=== PATIENT | female | born 1940 | race Caucasian/White ===

== ENCOUNTER 2016-11-12 08:28 | Day surgery (SDC) | payer OTHER ==
[2016-11-04 15:58] VITALS: BMI 21.4
[2016-11-12] MEDS: TROPICAMIDE 1% OPHTH SOLN 15 ML BOTTLE ONE ×3 (09:00→09:10)
[2016-11-12] MEDS: CYCLOPENTOLATE 2% OPHTH SOLN 2 ML BOTTLE ONE ×3 (09:00→09:10)
[2016-11-12] MEDS: PHENYLEPHRINE 2.5% OPHTH SOLN 15 ML BOTTLE ONE ×3 (09:00→09:10)
[2016-11-12] MEDS: CIPROFLOXACIN 0.3% EYE DROPS 5 ML BOTTLE ONE ×3 (09:00→09:10)
[2016-11-12] MEDS ORDERED: MIDAZOLAM HCL 2 MG/2 ML SINGLE DOSE VIAL ONE (10:08)
[2016-11-12 10:11] VITALS: BP 121/76; PULSE 60; TEMP 98.3
--- NOTE | 2016-11-12 12:40 | OP ---
DATE OF OPERATION: 11/12/2016 OPERATIVE PROCEDURE: Lens Phacoemulsification with Posterior Chamber Intraocular Lens Placement Left Eye PREOPERATIVE DIAGNOSIS: Visually Significant Cataract of Left Eye POSTOPERATIVE DIAGNOSIS: Visually Significant Cataract of Left Eye SURGEON: Kai Leija M.D. ANESTHESIA: MAC PROCEDURE: The patient was brought to the operating room and placed under monitored anesthesia care by Anesthesia. A drop of Tetracaine was then placed over the left eye. The patient was then prepped and draped in the usual sterile manner. A speculum was then placed over the left eye. The eye was then well irrigated with copious amounts of BSS (balanced salt solution). The operating microscope was then moved into position. A paracentesis was performed using a 15 degree blade. At this point 0.5 mL of 1% preservative-free lidocaine was injected into the anterior chamber. Amvisc plus was then injected into the anterior chamber. A clear corneal incision was then formed using a 2.2 mm keratome. A capsulorrhexis was then performed in a continuous circular fashion beginning with a cystotome, completed with an Utratas forceps. Hydrodissection was then performed using BSS on a cannula. The phaco probe was then introduced through the corneal wound and the cataract was removed using the phaco chop technique. Approximately 3 seconds of absolute phaco time was used. The remaining cortex was then removed using irrigation and aspiration with an I/A probe. The capsule was then filled with regular Amvisc and the capsule was noted to be intact. A previously selected foldable posterior chamber intraocular lens was then injected into the capsule through the corneal wound using a lens injector. It was then dialed into position using a Sinskey hook. The Amvisc was then removed using irrigation and aspiration. Miostat was then injected through the paracentesis to constrict the pupil. The paracentesis and corneal wound were then hydrated and noted to be water tight. A drop of Maxitrol was then placed over the eye. The speculum was removed and clear shield was taped over the eye. The patient tolerated the procedure well and there were no surgical complications. The patient was asked to follow up in my office the next day. KAI LEIJA M.D. SHELBY/[id number]
== END 2016-11-12 10:57 | disposition home or self-care (01) ==
LOC: FASU 08:28
PROVIDERS: ATTEND Ophthalmology
PROC: 08RK3JZ Replacement of Left Lens with Synthetic Substitute, Percutaneous Approach (ICD-10-PCS; principal; 2016-11-12 10:00)
DX: H26.8 Other specified cataract (principal)

== ENCOUNTER 2018-08-12 19:58 | Emergency (ER) | payer OTHER ==
--- NOTE | 2018-08-12 20:05 | PDOC ---
History of Present Illness - General History Source: Patient, Family (Son) Exam Limitations: No Limitations <Brenden Burgess - Last Filed: 08/12/18 20:51> <Bety Chong - Last Filed: 08/13/18 01:06> - General Chief Complaint: Chest Pain Stated Complaint: CHEST PAIN Time Seen by Provider: 08/12/18 20:02 - History of Present Illness Initial Comments: 08/12/18 20:29 The patient is a 77 year old female, with a significant past medical history of rheumatic fever (as a child), early dementia, who presents to the ED complaining of chest pain for the past 30 minutes. She describes her chest pain as a fast beat with pain, mild in severity. She denies any modifying factors. She does note pain on her left arm, mid back pain and a "shaky" sensation that also developed today. She reports that she recently had a runny hose and suffers from vertigo for which she takes Meclizine. The patient denies shortness of breath, headache, fever, chills, nausea, vomiting, diarrhea or constipation. Denies dysuria, frequency, urgency and hematuria. Allergies: None Past surgical history: None reported Social History: No alcohol, tobacco or drug use reported (Brenden Burgess) Past History <KamrantiffanieBrenden - Last Filed: 08/12/18 20:51> - Past Medical History Anemia: No Asthma: No Cancer: No Cardiac Disorders: No (RHEUMATIC FEVER A CHILD) CVA: No COPD: No CHF: No Dementia: Yes (MILD) Diabetes: No GI Disorders: No Disorders: No HTN: No Hypercholesterolemia: No Liver Disease: No Seizures: No Thyroid Disease: No - Surgical History Abdominal Surgery: No Appendectomy: No Cardiac Surgery: No Cholecystectomy: No Lung Surgery: No Neurologic Surgery: No Orthopedic Surgery: No - Suicide/Smoking/Psychosocial Hx Smoking History: Never smoked Have you smoked in the past 12 months: No Hx Alcohol Use: No Drug/Substance Use Hx: No Substance Use Type: None Hx Substance Use Treatment: No <Bety Chong - Last Filed: 08/13/18 01:06> - Past Medical History Allergies/Adverse Reactions: Allergies Allergy/AdvReac Type Severity Reaction Status Date / Time No Known Allergies Allergy Verified 11/29/17 19:37 Home Medications: Ambulatory Orders Aspirin [ASA -] 81 mg PO DAILY 09/02/16 Memantine HCl [Namenda -] 5 mg PO DAILY 09/02/16 Cardiac Specific PMH - Complaint Specific PMHX Pacemaker: No <Bety Chong - Last Filed: 08/13/18 01:06> Review of Systems - Review of Systems Able to Perform ROS?: Yes <Brenden Burgess - Last Filed: 08/12/18 20:51> <Bety Chong - Last Filed: 08/13/18 01:06> - Review of Systems Comments:: 08/12/18 20:28 GENERAL/CONSTITUTIONAL: No fever or chills. No weakness. HEAD, EYES, EARS, NOSE AND THROAT: No change in vision. No ear pain or discharge. No sore throat. GASTROINTESTINAL: No nausea, vomiting, diarrhea or constipation. GENITOURINARY: No dysuria, frequency, or change in urination. CARDIOVASCULAR: (+) Chest pain. No shortness of breath. RESPIRATORY: No cough, wheezing, or hemoptysis. MUSCULOSKELETAL: (+) Mid back pain. No joint or muscle swelling or pain. No neck pain. SKIN: No rash NEUROLOGIC: (+) Dizziness. No headache, loss of consciousness, or change in strength/sensation. ENDOCRINE: No increased thirst. No abnormal weight change. HEMATOLOGIC/LYMPHATIC: No anemia, easy bleeding, or history of blood clots. ALLERGIC/IMMUNOLOGIC: No hives or skin allergy. (Brenden Burgess) *Physical Exam <Brenden Burgess - Last Filed: 08/12/18 20:51> <Bety Chong - Last Filed: 08/13/18 01:06> - Vital Signs Last Vital Signs Temp Pulse Resp BP Pulse Ox 98.1 F 83 16 150/80 99 08/12/18 20:06 08/12/18 20:06 08/12/18 20:06 08/12/18 20:06 08/12/18 20:06 - Physical Exam Comments: 08/12/18 20:28 Constitutional: Awake, alert, oriented. No acute distress. Head: Normocephalic. Atraumatic Eyes: PERRL. EOMI. Conjunctivae are not pale. ENT: Mucous membranes are moist and intact. Posterior pharynx without exudates or erythema. Uvula midline. Neck: Supple. Full ROM. No lymphadenopathy. Cardiovascular: (+) 2/6 systolic ejection murmur. Regular rate. Distal pulses are 2+ and symmetric. Pulmonary/Chest: No evidence of respiratory distress. Clear to auscultation bilaterally No wheezing, rales or rhonchi. Chest wall: (+) Mildly tender palpation in the left periscapular area, without crepitus, stepoffs. Abdominal: Soft and non-distended. There is no tenderness. No rebound, guarding or rigidity. No organomegaly. No palpable masses. Good bowel sounds. Back: No CVA tenderness. Musculoskeletal: No edema. No cyanosis. No clubbing. Full range of motion in all extremities. Nocalf tenderness. Radial/pedal pulses are intact and 2+ bilaterally Skin: Skin is warm and dry. No petechiae. No purpura. Neurological: (+) Mild resting tremor of upper extremities. Alert and oriented to person, place, and time. Cranial nerves II-XII are grossly intact. Normal speech. Strength is grossly symmetric. No sensory deficits. Psychiatric: Good eye contact. Normal interaction, affect and behavior. (Brenden Burgess) Heart Score/ECG Review - History History: Slightly suspicious - Electrocardiogram EKG: Normal - Age Age: >/= 65 - Risk Factors Based on the list above the patient has:: No risk factors known - Troponin Troponin: </= normal limit - Score Heart Score - Total: 2 <Bety Chong Filed: 08/13/18 01:06> - Procedure Monitoring Vital Signs: Procedure Monitoring Vital Signs Temperature 98.1 F 08/12/18 20:06 Pulse Rate 83 08/12/18 20:06 Respiratory Rate 16 08/12/18 20:06 Blood Pressure 150/80 08/12/18 20:06 O2 Sat by Pulse Oximetry (%) 99 08/12/18 20:06 ED Treatment Course - LABORATORY CBC & Chemistry Diagram: 08/12/18 21:00 08/12/18 21:00 <Bety Chong - Last Filed: 08/13/18 01:06> - ADDITIONAL ORDERS Additional order review: Laboratory Results 08/12/18 08/12/18 08/12/18 21:00 21:00 21:00 PT with INR 10.7 INR 0.95 L Sodium 136 Potassium 3.5 Chloride 104 Carbon Dioxide 25 Anion Gap 7 L BUN 15 Creatinine 0.8 Creat Clearance w eGFR > 60 Random Glucose 161 H D Calcium 8.4 Total Bilirubin 0.8 AST 23 ALT 15 Alkaline Phosphatase 103 H Creatine Kinase 61 Troponin I < 0.03 Total Protein 7.2 Albumin 3.6 08/12/18 21:00 RBC 4.47 MCV 93.1 MCHC 33.1 RDW 12.7 MPV 7.8 Neutrophils % 64.9 Lymphocytes % 25.7 Monocytes % 5.1 Eosinophils % 3.5 Basophils % 0.8 - RADIOLOGY Radiology Studies Ordered: Category Date Time Status CHEST X-RAY PORTABLE* [RAD] Stat Radiology 08/12/18 21:02 Taken Medical Decision Making <Brenden Burgess - Last Filed: 08/12/18 20:51> <Bety Chong - Last Filed: 08/13/18 01:06> - Medical Decision Making Documentation has been prepared under my direction and personally reviewed by me in its entirety. I attest that this documented accurately reflects all work, treatment, procedures and medical decision making performed by me. As noted above, this 77-year-old woman is brought into the emergency room by her son with history of chest pain and upper back pain earlier this evening. Patient was not engaging in any physical activity with onset of this pain. Patient (who has known history of dementia) describes the pain as a rapid heartbeat. Patient is unclear how long discomfort lasted but is without pain on examination soon after presenting to the ER. Exam as noted. This 77-year-old woman presents with history of anterior chest pain and upper back pain; she is asymptomatic on presentation. Exam as noted is normal except for mild left periscapular tenderness and faint heart murmur. 12-lead electrocardiogram is performed and interpreted by me: Normal sinus rhythm at [address] or T-wave abnormalities. There is left axis deviation and poor R-wave progression. No evidence of cardiac arrhythmia. CBC and chemistry profile sent. Troponin is less than 0.03. There are no other significant abnormalities. Portable chest x-ray shows normal cardiac silhouette; major vessels are also normal in appearance. Lung cali are without infiltrates, interstitial fluid or pneumothorax. Patient will be discharged in the company of her son with plan to follow-up with her PMD, Dr. Didier Cabrales tomorrow. If she has any recurrence of her atypical chest pain, she should return to the emergency room where this workup will be started. (Bety Chong) *DC/Admit/Observation/Transfer <Brenden Burgess - Last Filed: 08/12/18 20:51> <Bety Chong - Last Filed: 08/13/18 01:06> Diagnosis at time of Disposition: Atypical chest pain - Discharge Dispostion Disposition: HOME Condition at time of disposition: Stable - Referrals Referrals: Alli Cabrales MD [Primary Care Provider] - Call tomorrow - Patient Instructions Printed Discharge Instructions: DI for Atypical Chest Pain Additional Instructions: You can take Tylenol/aspirin/ibuprofen as needed for pain Be sure to take aspirin/ibuprofen with food Continue other medications as prescribed Call Dr. Cabrales in a.m. to arrange follow-up within the next 5 days as discussed Return to ER immediately if you have any further chest pain/shortness breath/ palpitations - Post Discharge Activity - Attestations Scribe Attestion: 08/12/18 20:28 Documentation prepared by Brenden Burgess, acting as medical orderly for Bety Chong MD (Brenden Burgess)
[2018-08-12 20:11] VITALS: BP 150/80; PULSE 83; TEMP 98.1; BMI 21.0
[2018-08-12 21:16] LABS: BASO % 0.8 % (0-2.0); EOS % 3.5 % (0-4.5); HEMATOCRIT 41.6 % (32.4-45.2); HEMOGLOBIN 13.7 GM/dl (10.7-15.3); LYMPH % 25.7 % (8-40); MCH 30.8 pg (25.7-33.7); MCHC 33.1 g/dl (32.0-36.0); MEAN CELL VOLUME 93.1 fl (80-96); MEAN PLT VOLUME 7.8 fl (7.5-11.1); MONO % 5.1 % (3.8-10.2); NEUT % 64.9 % (42.8-82.8); PLATELET COUNT 329 K/MM3 (134-434); RBC 4.47 M/mm3 (3.60-5.2); RDW 12.7 % (11.6-15.6); WHITE BLOOD COUNT 7.8 K/mm3 (4.0-10.8)
[2018-08-12 21:18] LABS: INR 0.95 (0.82-1.09); PROTHROMBIN TIME (PATIENT) 10.7 SEC (10.2-13.0)
[2018-08-12 21:25] LABS: ALBUMIN 3.6 g/dl (3.5-5.0); ALK PHOS 103 U/L (32-92); ANION GAP 7 MMOL/L (8-16); BILIRUBIN,TOTAL 0.8 mg/dl (0.2-1.0); BLOOD UREA NITROGEN 15 mg/dl (7-18); CALCIUM 8.4 mg/dl (8.4-10.2); CHLORIDE 104 mmol/L (98-107); CO2 25 mmol/L (22-28); CREATININE 0.8 mg/dl (0.6-1.3); GLUCOSE,RANDOM 161 mg/dl (74-106); POTASSIUM 3.5 mmol/L (3.5-5.1); SGOT/AST 23 U/L (10-42); SGPT/ALT 15 U/L (10-40); SODIUM 136 mmol/L (136-145); TOT PROT 7.2 g/dl (6.4-8.3)
--- NOTE | 2018-08-13 10:19 | EKG ---
Test Reason : Blood Pressure : / mmHG Vent. Rate : 073 BPM Atrial Rate : 073 BPM P-R Int : 176 ms QRS Dur : 086 ms QT Int : 414 ms P-R-T Axes : 043 -50 029 degrees QTc Int : 456 ms NORMAL SINUS RHYTHM LEFT AXIS DEVIATION LOW VOLTAGE QRS INFERIOR INFARCT , AGE UNDETERMINED CANNOT RULE OUT ANTERIOR INFARCT , AGE UNDETERMINED ABNORMAL ECG NO PREVIOUS ECGS AVAILABLE Confirmed by LUIS NGUYEN MD ([id number]) on 08/13/2018 10:18:33 AM Referred By: DR COSTA Confirmed By:LUIS NGUYEN MD
== END 2018-08-12 22:10 | disposition home or self-care (01) ==
LOC: FER 19:58
DX: R07.89 Other chest pain (principal)
CPT/HCPCS: 36415; 71045-TC-FY; 80053; 82550; 84484; 85025; 85610; 93005; 99281-25

== ENCOUNTER 2018-11-22 07:54 | Emergency (ER) | payer OTHER ==
[2018-11-22 08:00] VITALS: BP 151/89; PULSE 84; TEMP 98; BMI 21.4
[2018-11-22] MEDS ORDERED: DIPHTH,PERTUSS(ACELL),TET 0.5 ML DISP.SYRIN IM ONE ×2 (08:10→08:12)
--- NOTE | 2018-11-22 08:11 | PDOC ---
History of Present Illness - General Chief Complaint: Injury Stated Complaint: Fall Time Seen by Provider: 11/22/18 08:02 - History of Present Illness Initial Comments: 11/22/18 08:16 75 years old past medical history significant for vertigo on meclizine dementia resents to the ED with a mechanical fall out of bed. Patient's son states patient rolled out of bed and hit the back of her head was no loss of consciousness. Patient with no complaints at this time No new symptoms recently no new or different headaches chest pain shortness of breath no runny nose cough sore throat nausea vomiting diarrhea or urinary symptoms. Patient has fallen out of bed before Symptoms appear mild persistent constant Past History - Past Medical History Allergies/Adverse Reactions: Allergies Allergy/AdvReac Type Severity Reaction Status Date / Time No Known Allergies Allergy Verified 11/22/18 07:59 Home Medications: Ambulatory Orders Aspirin [ASA -] 81 mg PO DAILY 09/02/16 Memantine HCl [Namenda -] 5 mg PO DAILY 09/02/16 Meclizine HCl 12.5 mg PO ASDIR 11/22/18 Anemia: No Asthma: No Cancer: No Cardiac Disorders: No (RHEUMATIC FEVER A CHILD) CVA: No COPD: No CHF: No Dementia: Yes (MILD) Diabetes: No GI Disorders: No Disorders: No HTN: No Hypercholesterolemia: No Liver Disease: No Seizures: No Thyroid Disease: No - Surgical History Abdominal Surgery: No Appendectomy: No Cardiac Surgery: No Cholecystectomy: No Lung Surgery: No Neurologic Surgery: No Orthopedic Surgery: No - Suicide/Smoking/Psychosocial Hx Smoking History: Never smoked Have you smoked in the past 12 months: No Hx Alcohol Use: No Drug/Substance Use Hx: No Substance Use Type: None Hx Substance Use Treatment: No Review of Systems - Review of Systems Comments:: 11/22/18 08:16 ROS: A complete review of 10 out of 10 review of systems is taken and is negative apart from what is previously mentioned below and in the HPI. *Physical Exam - Vital Signs Last Vital Signs Temp Pulse Resp BP Pulse Ox 98 F 84 18 151/89 100 11/22/18 07:59 11/22/18 07:59 11/22/18 07:59 11/22/18 07:59 11/22/18 07:59 - Physical Exam Comments: 11/22/18 08:19 Vitals: Triage Vital signs reviewed General Appearance: no acute distress, well nourished well developed, Head: Hematoma and small abrasion to occiput Eyes: Pupils equal reactive round, extraocular movement intact Ears: No blood Nose: Nares patent bilaterally;no nasal congestion Neck: Supple;No Nucal rigidity Chest Wall: Nontender Cardiac: Regular rate and rhythym, no murmurs, no rubs, no gallops, Lungs: Clear to auscultation bilateral, good air movement bilaterally, Abdomen: Soft, non distended, normal bowel sounds, non tender to palpation Extremities: Full range of motion to all extremities, no cyanosis, clubbing, or edema Skin: Warm and dry, no rashes or lesions, no rash, no petechiae Neuro: Cranial Nerves 2-12 grossly intact, Strength intact to all extremities, Sensation intact to all extremities Psych: normal mood, normal affect Moderate Sedation - Procedure Monitoring Vital Signs: Procedure Monitoring Vital Signs Temperature 98 F 11/22/18 07:59 Pulse Rate 84 11/22/18 07:59 Respiratory Rate 18 11/22/18 07:59 Blood Pressure 151/89 11/22/18 07:59 O2 Sat by Pulse Oximetry (%) 100 11/22/18 07:59 ED Treatment Course - RADIOLOGY Radiology Studies Ordered: Category Date Time Status CERVICAL SPINE CT W/O CONTR [CT] Stat CT Scan 11/22/18 08:[address] WITHOUT CONTRAST [CT] Stat CT Scan 11/22/18 08:10 Ordered Medical Decision Making - Medical Decision Making 11/22/18 09:42 No fracture noted or injury noted on CT History examination consistent with minor head injury Findings, the need for follow-up and strict return instructions discussed with patient. 11/22/18 18:56 *DC/Admit/Observation/Transfer Diagnosis at time of Disposition: Head injury Qualifiers: Encounter type: initial encounter Qualified Code(s): S09.90XA - Unspecified injury of head, initial encounter - Discharge Dispostion Condition at time of disposition: Stable Decision to Admit order: No - Referrals Referrals: Alli Cabrales MD [Primary Care Provider] - - Patient Instructions Printed Discharge Instructions: DI for Closed Head Injury Additional Instructions: Return to the ED for any severe headache change in behavior weakness numbness or vomiting. Tonight wake the patient up every 3 hours of sleep to ensure she is acting normally. Follow-up with her primary care provider within one to 2 days. Return to ED for any concerns. For the small abrasion to the back of her head please apply bacitracin twice a day. - Post Discharge Activity
== END 2018-11-22 09:57 | disposition home or self-care (01) ==
LOC: FER 07:54 → SUPCPDRO 07:54 → FER 09:57
PROC: 3E0234Z Introduction of Serum, Toxoid and Vaccine into Muscle, Percutaneous Approach (ICD-10-PCS; principal; 2018-11-22)
DX: S09.90XA Unspecified injury of head, initial encounter (principal); W06.XXXA Fall from bed, initial encounter; Y93.89 Activity, other specified; Y92.89 Other specified places as the place of occurrence of the external cause; F03.90 Unspecified dementia, unspecified severity, without behavioral disturbance, psychotic disturbance, mood disturbance, and anxiety
CPT/HCPCS: 70450-TC; 72125-TC; 90715; 99282-25

== ENCOUNTER 2019-01-02 23:42 | Emergency (ER) | payer OTHER ==
[2019-01-02] MEDS ORDERED: ACETAMINOPHEN 325 MG TABLET (FP) PO ONE (23:55)
[2019-01-02 23:59] VITALS: BP 139/86; PULSE 71; TEMP 98.3; BMI 20.1
[2019-01-03] MEDS ORDERED: ACETAMINOPHEN 325 MG TABLET (FP) ONE (00:01)
--- NOTE | 2019-01-03 00:08 | PDOC ---
History of Present Illness - General Chief Complaint: Injury Stated Complaint: INJURY TO LEFT KNEE Time Seen by Provider: 01/02/19 23:47 History Source: Patient, Family Exam Limitations: No Limitations - History of Present Illness Initial Comments: 01/02/19 23:59 78-year-old female patient with past medical history of early stage dementia presents with fall to left knee. The fall was witnessed by the patient's son. The patient was ambulatory without assistance when she had mechanical fall. Was called by the son but the left knee hit the ground. Initially, the patient was ambulatory after the injury. However, throughout the day, the patient's left knee is continues swollen and was more tender. Patient taking Motrin and EMS was called. Patient typically walks with a cane. Patient denies any numbness or weakness. Past History - Past Medical History Allergies/Adverse Reactions: Allergies Allergy/AdvReac Type Severity Reaction Status Date / Time No Known Allergies Allergy Verified 01/02/19 23:45 Home Medications: Ambulatory Orders Aspirin [ASA -] 81 mg PO DAILY 09/02/16 Memantine HCl [Namenda -] 5 mg PO DAILY 09/02/16 Meclizine HCl 12.5 mg PO ASDIR 11/22/18 Anemia: No Asthma: No Cancer: No Cardiac Disorders: No (RHEUMATIC FEVER A CHILD) CVA: No COPD: No CHF: No Dementia: Yes (MILD) Diabetes: No GI Disorders: No Disorders: No HTN: No Hypercholesterolemia: No Liver Disease: No Seizures: No Thyroid Disease: No - Surgical History Abdominal Surgery: No Appendectomy: No Cardiac Surgery: No Cholecystectomy: No Lung Surgery: No Neurologic Surgery: No Orthopedic Surgery: No - Suicide/Smoking/Psychosocial Hx Smoking History: Never smoked Have you smoked in the past 12 months: No Information on smoking cessation initiated: No Hx Alcohol Use: No Drug/Substance Use Hx: No Substance Use Type: None Hx Substance Use Treatment: No Review of Systems - Review of Systems Able to Perform ROS?: Yes Comments:: 01/03/19 00:08 GENERAL/CONSTITUTIONAL: [No fever or chills. No weakness. No weight change.] HEAD, EYES, EARS, NOSE AND THROAT: [No change in vision. No ear pain or discharge. No sore throat.] CARDIOVASCULAR: [No chest pain or shortness of breath.] RESPIRATORY: [No cough, wheezing, or hemoptysis.] GASTROINTESTINAL: [No nausea, vomiting, diarrhea or constipation. No rectal bleeding.] GENITOURINARY: [No dysuria, frequency, or change in urination.] MUSCULOSKELETAL: [No joint pain. No neck or back pain.] + left knee pain SKIN AND BREASTS: [No rash or easy bruising.] NEUROLOGIC: [No headache, vertigo, loss of consciousness, or loss of sensation.] PSYCHIATRIC: [No depression or anxiety.] ENDOCRINE: [No increased thirst. No abnormal weight change.] HEMATOLOGIC/LYMPHATIC: [No anemia, easy bleeding, or history of blood clots.] ALLERGIC/IMMUNOLOGIC: [No hives or skin allergy. No latex allergy.] *Physical Exam - Vital Signs Last Vital Signs Temp Pulse Resp BP Pulse Ox 98.3 F 71 18 139/86 97 01/02/19 23:47 01/02/19 23:47 01/02/19 23:47 01/02/19 23:47 01/02/19 23:47 - Physical Exam Comments: 01/03/19 00:09 GENERAL: Awake, alert, and oriented, in no acute distress HEAD: No signs of trauma EYES: EOMI, sclera anicteric, conjunctiva clear ENT: Auricles normal inspection, hearing grossly normal, nares patent, Moist mucosa NECK: Normal ROM, supple, LUNGS: Breath sounds equal, clear to auscultation bilaterally. No wheezes, and no crackles HEART: Regular rate and rhythm, normal S1 and S2, no murmurs, rubs or gallops ABDOMEN: Soft, nontender,. No guarding, no rebound. No masses PELVIS: stable and nontender EXTREMITIES: Normal range of motion, No clubbing or cyanosis. No cords, erythema. LLE: 2+ DP pulse. Sensation and strength intact throughout. Mild left knee effusion appreciated. negative varus/valgus. Negative anterior/posterior drawer test. Mildly TTP left anterior knee. Pt is ambulatory with assistance. NEUROLOGICAL: Cranial nerves II through XII grossly intact. Normal speech SKIN: Warm, Dry, normal turgor, no rashes or lesions noted. ED Treatment Course - RADIOLOGY Radiology Studies Ordered: Category Date Time Status KNEE 3 POS-LEFT [RAD] Stat Radiology 01/02/19 23:55 Ordered Medical Decision Making - Medical Decision Making 01/03/19 00:13 Vital Signs Temp Pulse Resp BP Pulse Ox 98.3 F 71 18 139/86 97 01/02/19 23:47 01/02/19 23:47 01/02/19 23:47 01/02/19 23:47 01/02/19 23:47 I suspect that the patient has a left knee contusion or strain. Will obtain a left knee xray to r/o fracture. However, pt is ambulatory. Tylenol PRN. If xray negative, d/c with follow up with son. 01/03/19 00:41 Xray reviewed by me, pending official radiology read. Mild effusion, no fractures. Will d/c patient home with pt's son. INEZ wrap applied to the knee. I discussed the physical exam findings, ancillary test results and final diagnoses with the patient. I answered all of the patient's questions. The patient was satisfied with the care received and felt comfortable with the discharge plan and treatment plan. The patient will call their primary care physician within 24 hours to arrange follow-up and will return to the Emergency Department with any new, persistant or worsening symptoms. *DC/Admit/Observation/Transfer Diagnosis at time of Disposition: Knee pain Qualifiers: Chronicity: acute Laterality: left Qualified Code(s): M25.562 - Pain in left knee - Discharge Dispostion Disposition: HOME Condition at time of disposition: Stable Decision to Admit order: No - Referrals Referrals: Alli Cabrales MD [Primary Care Provider] - - Patient Instructions Printed Discharge Instructions: DI for Knee Pain Additional Instructions: There does not appear to be a fracture on the xray. Use the INEZ wrap as needed for comfort. Elevate the leg to help with the swelling. Ice the knee 10 minutes several times a day. Take 650 mg tylenol every 4 hours as needed for pain. Follow up with your doctor. - Post Discharge Activity
== END 2019-01-03 00:55 | disposition home or self-care (01) ==
LOC: FER 23:42
DX: M25.562 Pain in left knee (principal); F03.90 Unspecified dementia, unspecified severity, without behavioral disturbance, psychotic disturbance, mood disturbance, and anxiety; I00 Rheumatic fever without heart involvement
CPT/HCPCS: 73562-TC-LT-FY; 99281-25

== ENCOUNTER 2019-01-04 10:56 | Inpatient (IN) | payer OTHER ==
--- NOTE | 2019-01-04 11:48 | PDOC ---
History of Present Illness - General Chief Complaint: Injury Stated Complaint: LEFT KNEE SWOLLEN Time Seen by Provider: 01/04/19 11:10 - History of Present Illness Initial Comments: 01/04/19 11:43 78yo F hx dementia, vertigo presents to the ED with progressive knee pain since fall on Thursday. Pt was seen here in the ED after the fall, XR was neg for acute fx and pt was DC. SInce then swelling around L knee worse, can not bear weight. Son states she normally ambulates with a cane, but now needs assistance to ambulate. He is concerned because she lives alone. Per her son, pt had a bed at [facility] but the bed was lost due to insurance issues. On ROS, pt also reporting 1 week of urinary frequency, no dysuria or hematuria. Denies fevers, chills, weakness/numbness, headache, CP, SOB, abd pain, LE edema. Pt takes nemenda, aspirin daily and meclizine PRN for vertigo. Past History - Past Medical History Allergies/Adverse Reactions: Allergies Allergy/AdvReac Type Severity Reaction Status Date / Time No Known Allergies Allergy Verified 01/04/19 11:03 Home Medications: Ambulatory Orders Aspirin [ASA -] 81 mg PO DAILY 09/02/16 Memantine HCl [Namenda -] 12.5 mg PO DAILY 09/02/16 Meclizine HCl 12.5 mg PO ASDIR 11/22/18 Anemia: No Asthma: No Cancer: No Cardiac Disorders: No (RHEUMATIC FEVER A CHILD) CVA: No COPD: No CHF: No Dementia: Yes (MILD) Diabetes: No GI Disorders: No Disorders: No HTN: No Hypercholesterolemia: No Liver Disease: No Seizures: No Thyroid Disease: No - Surgical History Abdominal Surgery: No Appendectomy: No Cardiac Surgery: No Cholecystectomy: No Lung Surgery: No Neurologic Surgery: No Orthopedic Surgery: No - Suicide/Smoking/Psychosocial Hx Smoking History: Never smoked Have you smoked in the past 12 months: No Hx Alcohol Use: No Drug/Substance Use Hx: No Substance Use Type: None Hx Substance Use Treatment: No Review of Systems - Review of Systems Comments:: 01/04/19 13:16 GENERAL/CONSTITUTIONAL: No fever or chills. No weakness. HEAD, EYES, EARS, NOSE AND THROAT: No change in vision. No ear pain or discharge. No sore throat. GASTROINTESTINAL: No nausea, vomiting, diarrhea or constipation. GENITOURINARY: + dysuria, frequency, change in urination. CARDIOVASCULAR: No chest pain or shortness of breath. RESPIRATORY: No cough, wheezing, or hemoptysis. MUSCULOSKELETAL: +Knee pain and swelling, no neck or back pain. SKIN: No rash NEUROLOGIC: No headache, vertigo, loss of consciousness, or change in strength/ sensation. ENDOCRINE: No increased thirst. No abnormal weight change. HEMATOLOGIC/LYMPHATIC: No anemia, easy bleeding, or history of blood clots. ALLERGIC/IMMUNOLOGIC: No hives or skin allergy. *Physical Exam - Vital Signs Last Vital Signs Temp Pulse Resp BP Pulse Ox 98.4 F 78 16 102/71 96 01/04/19 10:57 01/04/19 10:57 01/04/19 10:57 01/04/19 10:57 01/04/19 10:57 - Physical Exam Comments: 01/04/19 13:17 GENERAL: Awake, alert, in no acute distress HEAD: No signs of trauma EYES: EOMI, sclera anicteric, conjunctiva clear ENT: Nares patent, oropharynx clear without exudates. Moist mucosa NECK: Normal ROM, supple, no lymphadenopathy, JVD, or masses LUNGS: Breath sounds equal, clear to auscultation bilaterally. No wheezes, and no crackles HEART: Regular rate and rhythm, normal S1 and S2, no murmurs, rubs or gallops ABDOMEN: Soft, nontender, normoactive bowel sounds. No guarding, no rebound. No masses EXTREMITIES: L knee with edema consistent with suprapatellar effusion. No focal ttp. Pt unable to bear weight on LLE. LLE compartments soft. 2+ palpable DP and TP pulses. NEUROLOGICAL: Normal speech, cranial nerves intact, equal strength and sensation b/l. Requires assistance in order to ambulate SKIN: Warm, Dry, normal turgor, no rashes or lesions noted. Heart Score/ECG Review #1 01/04/19 13:23 Twelve-lead EKG was performed and reviewed by me. Normal sinus rhythm, rate 67. Left axis deviation. Left anterior fascicular block. No ST elevations. ED Treatment Course - LABORATORY CBC & Chemistry Diagram: 01/04/19 12:10 01/04/19 12:26 Medical Decision Making - Medical Decision Making 01/04/19 13:06 78yo F presents to the ED with progressive knee pain since fall 2 days ago, now unable to bear weight +edema to L knee and pt unable to bear weight, but NVI XR from 2 days ago reviewed, reveals old tibial plateau fx As pt unable to bear weight, I am concerned the tibial plateau fx may not be old As such, obtained CT scan for further evaluation which reveals that tibial plateau fx may be acute Case discussed with Dr. Schroeder who recommends NWB, knee immoblizer and he will come to evaluate pt Case discussed with MASS SPECTROSCOPIST Mona, pt admitted to Dr. Duque for further mgmt Pain well controlled with tramadol Case discussed in detail with admitting physician including history, physical exam and ancillary studies. Admitting physician has assumed care for the patient, will follow all pending diagnostics and will complete the evaluation and treatment. *DC/Admit/Observation/Transfer Diagnosis at time of Disposition: Tibial plateau fracture, left - Discharge Dispostion Condition at time of disposition: Stable - Referrals - Patient Instructions - Post Discharge Activity - Attestations Physician Attestion: 01/04/19 15:01 I, Dr. Favio Ordaz MD, attest that this document has been prepared under my direction and personally reviewed by me in its entirety. I further attest, that it accurately reflects all work, treatment, procedures and medical decision -making performed by me.
[2019-01-04 12:36] LABS: BASO % 0.6 % (0-2.0); EOS % 0.9 % (0-4.5); HEMATOCRIT 41.8 % (32.4-45.2); HEMOGLOBIN 13.9 GM/dl (10.7-15.3); LYMPH % 18.5 % (8-40); MCH 31.3 pg (25.7-33.7); MCHC 33.2 g/dl (32.0-36.0); MEAN CELL VOLUME 94.3 fl (80-96); MEAN PLT VOLUME 7.7 fl (7.5-11.1); PLATELET COUNT 329 K/MM3 (134-434); RBC 4.43 M/mm3 (3.60-5.2); RDW 12.9 % (11.6-15.6); WHITE BLOOD COUNT 8.4 K/mm3 (4.0-10.8)
--- NOTE | 2019-01-04 12:38 | EKG ---
Test Reason : Blood Pressure : / mmHG Vent. Rate : 067 BPM Atrial Rate : 067 BPM P-R Int : 172 ms QRS Dur : 096 ms QT Int : 428 ms P-R-T Axes : 048 -49 022 degrees QTc Int : 452 ms NORMAL SINUS RHYTHM LEFT ANTERIOR FASCICULAR BLOCK CANNOT RULE OUT INFERIOR INFARCT (CITED ON OR BEFORE 12-AUG-2018) ABNORMAL ECG Confirmed by MD ROXANN, ELIER ([id number]) on 01/04/2019 12:38:14 PM Referred By: PATIENCE LONG Confirmed By:ELIER HACKETT MD
[2019-01-04 12:45] LABS: ALBUMIN 3.9 g/dl (3.4-5.0); ALK PHOS 123 U/L (45-117); ANION GAP 9 MMOL/L (8-16); BILIRUBIN,TOTAL 1.2 mg/dl (0.2-1); BLOOD UREA NITROGEN 12 mg/dl (7-18); CALCIUM 8.8 mg/dl (8.5-10); CHLORIDE 103 mmol/L (98-107); CO2 25 mmol/L (21-32); CREATININE 0.7 mg/dl (0.55-1.3); GLUCOSE,RANDOM 99 mg/dl (74-106); POTASSIUM 3.8 mmol/L (3.5-5.1); SGOT/AST 22 U/L (15-37); SGPT/ALT 13 U/L (13-61); SODIUM 137 mmol/L (136-145); TOT PROT 7.3 g/dl (6.4-8.2)
[2019-01-04] MEDS ORDERED: NAPROXEN 250 MG TABLET (FP) PO ONE (13:08)
[2019-01-04] MEDS ORDERED: traMADol HCL 50 MG TABLET PO ONE (13:09)
[2019-01-04] MEDS ORDERED: traMADol HCL 50 MG TABLET ONE (13:11)
--- NOTE | 2019-01-04 16:42 | HP ---
CHIEF COMPLAINT: Left knee pain and swelling PCP: Dr. Didier Cabrales HISTORY OF PRESENT ILLNESS: 78 year-old female with a PMH significant for benign positional vertigo, frequent falls, and dementia. First presented to the ED on 01/02 for left knee pain and swelling following a mechanical fall. Xray was unrevealing for an acute process and the patient was treated and released. Over the past two days, the swelling become worse and patient could no longer weight bear. She was brought back to ED by son. On ROS, patient reports urinary frequency x 1 week, no dysuria or hematuria. Denies fever, sweats, chills. ER course was notable for: (1) CT LLE: fracture of the posteriolateral tibial plateau of uncertain chronicity, may be acute; large joint effusion (2) UA negative Recent Travel: No PAST MEDICAL HISTORY: Benign positional vertigo Right hip fracture Right shoulder fracture Frequent falls Dementia Rheumatic fever as child PAST SURGICAL HISTORY: ORIF right hip fracture ORIF right shoulder fracture Social History: Smoking: never Alcohol: no Drugs: no Family History: Allergies No Known Allergies Allergy (Verified 01/04/19 11:03) HOME MEDICATIONS: Home Medications Medication Instructions Recorded Aspirin [ASA -] 81 mg PO DAILY 09/02/16 Memantine HCl [Namenda -] 12.5 mg PO DAILY 09/02/16 Meclizine HCl 12.5 mg PO ASDIR 11/22/18 REVIEW OF SYSTEMS CONSTITUTIONAL: Absent: fever, chills, diaphoresis, generalized weakness, malaise, loss of appetite, weight change HEENT: Absent: rhinorrhea, nasal congestion, throat pain, throat swelling, difficulty swallowing, mouth swelling, ear pain, eye pain, visual changes CARDIOVASCULAR: Absent: chest pain, syncope, palpitations, irregular heart rate, lightheadedness , peripheral edema RESPIRATORY: Absent: cough, shortness of breath, dyspnea with exertion, orthopnea, wheezing, stridor, hemoptysis GASTROINTESTINAL: Absent: abdominal pain, abdominal distension, nausea, vomiting, diarrhea, constipation, melena, hematochezia GENITOURINARY: +urinary frequency Absent: dysuria, urgency, hesitancy, hematuria, flank pain, genital pain MUSCULOSKELETAL: +left knee pain and swelling Absent: myalgia, arthralgia, joint swelling, back pain, neck pain SKIN: Absent: rash, itching, pallor HEMATOLOGIC/IMMUNOLOGIC: Absent: easy bleeding, easy bruising, lymphadenopathy, frequent infections ENDOCRINE: Absent: unexplained weight gain, unexplained weight loss, heat intolerance, cold intolerance NEUROLOGIC: Absent: headache, focal weakness or paresthesias, dizziness, unsteady gait, seizure, mental status changes, bladder or bowel incontinence PSYCHIATRIC: Absent: anxiety, depression, suicidal or homicidal ideation, hallucinations. PHYSICAL EXAMINATION Vital Signs - 24 hr 01/04/19 01/04/19 10:57 14:29 Temperature 98.4 F Pulse Rate 78 Pulse Rate [ 70 Left Radial] Respiratory 16 Rate Blood Pressure 102/71 Blood Pressure 124/73 [Right Arm] O2 Sat by Pulse 96 97 Oximetry (%) GENERAL: Awake, alert, and fully oriented, in no acute distress. HEAD: Normal with no signs of trauma. EYES: Pupils equal, round and reactive to light, extraocular movements intact, sclera anicteric, conjunctiva clear. No lid lag. EARS, NOSE, THROAT: Ears normal, nares patent, oropharynx clear without exudates. Moist mucous membranes. NECK: Normal range of motion, supple without lymphadenopathy, JVD, or masses. LUNGS: Breath sounds equal, clear to auscultation bilaterally. No wheezes, and no crackles. No accessory muscle use. HEART: Regular rate and rhythm, normal S1 and S2 without murmur, rub or gallop. ABDOMEN: Soft, nontender, not distended, normoactive bowel sounds, no guarding, no rebound, no masses. No hepatomegaly or splenomegaly. MUSCULOSKELETAL: Normal range of motion at all joints. No bony deformities or tenderness. No CVA tenderness. UPPER EXTREMITIES: 2+ pulses, warm, well-perfused. No cyanosis. No clubbing. No peripheral edema. LOWER EXTREMITIES: 2+ pulses, warm, well-perfused. No calf tenderness. No peripheral edema. NEUROLOGICAL: Cranial nerves II-XII intact. Normal speech. Normal gait. PSYCHIATRIC: Cooperative. Good eye contact. Appropriate mood and affect. SKIN: Warm, dry, normal turgor, no rashes or lesions noted, normal capillary refill. Laboratory Results - last 24 hr 01/04/19 01/04/19 01/04/19 12:10 12:10 12:10 WBC 8.4 RBC 4.43 Hgb 13.9 Hct 41.8 MCV 94.3 MCH 31.3 MCHC 33.2 RDW 12.9 Plt Count 329 MPV 7.7 Absolute Neuts (auto) 6.4 Neutrophils % 76.0 Lymphocytes % 18.5 Monocytes % 4.0 Eosinophils % 0.9 Basophils % 0.6 Sodium Potassium Chloride Carbon Dioxide Anion Gap BUN Creatinine Creat Clearance w eGFR Random Glucose Calcium Magnesium 2.1 Total Bilirubin AST ALT Alkaline Phosphatase Troponin I < 0.03 Total Protein Albumin Urine Color Urine Appearance Urine pH Urine Protein Urine Glucose (UA) Urine Ketones Urine Blood Urine Nitrite Urine Bilirubin Urine Urobilinogen Ur Leukocyte Esterase 01/04/19 01/04/19 12:26 15:40 WBC RBC Hgb Hct MCV MCH MCHC RDW Plt Count MPV Absolute Neuts (auto) Neutrophils % Lymphocytes % Monocytes % Eosinophils % Basophils % Sodium 137 Potassium 3.8 Chloride 103 Carbon Dioxide 25 Anion Gap 9 BUN 12 Creatinine 0.7 Creat Clearance w eGFR 80.93 Random Glucose 99 Calcium 8.8 Magnesium Total Bilirubin 1.2 H AST 22 ALT 13 Alkaline Phosphatase 123 H Troponin I Total Protein 7.3 Albumin 3.9 Urine Color Yellow Urine Appearance Clear Urine pH 5.5 Urine Protein Negative Urine Glucose (UA) Negative Urine Ketones Negative Urine Blood Negative Urine Nitrite Negative Urine Bilirubin Negative Urine Urobilinogen 0.2 Ur Leukocyte Esterase Negative ASSESSMENT/PLAN: 78 year-old female with a PMH significant for benign positional vertigo, frequent falls, and dementia. Placed on observation for a left posteriolateral tibial plateau fracture, acute v. chronic, and large joint effusion. Left posteriolateral tibial plateau fracture, acute v. chronic Large joint effusion --seen and evaluated by ortho: no surgical intervention; maintain Bulky Blair dressing and knee immobilizer; non-weight bearing; strict elevation 3-4 days; no NSAIDS --daily skin checks, decubitus precautions heels and sacrum --f/u with ortho 1-2 weeks Benign positional vertigo --stable Dementia --continue Namenda Urinary frequency --UA negative; no antibiotics for now FEN Fluids: PO intake adequate Electrolytes: replete as indicated Nutrition: regular diet DVT prophylaxis: subq heparin Physical therapy Dispo: continues to require observation. Full code. Visit type - Emergency Visit Emergency Visit: Yes ED Registration Date: 01/04/19 Care time: The patient presented to the Emergency Department on the above date and was hospitalized for further evaluation of their emergent condition. - New Patient This patient is new to me today: Yes Date on this admission: 01/04/19 - Critical Care Critical Care patient: No
[2019-01-04 16:46] VITALS: BMI 21.1
[2019-01-04] MEDS ORDERED: BISACODYL 10 MG SUPP.RECT RC PRN (17:14)
--- NOTE | 2019-01-04 18:29 | CONSULT ---
Consult - text type - Consultation Consultation Note: ORTHOPEDIC SURGERY CONSULTATION NOTE Department of Orthopedic Surgery HISTORY OF PRESENT ILLNESS Shellie Sung is a 78 year old female who was admitted to [facility] for left knee pain and difficulty ambulating. The orthopedic service was consulted for a left tibial plateau fracture. The patient fell 2 days ago an came to the emergency room. She was discharged but returned with persistent knee swelling and difficulty with ambulation. The patient notes pain in the posterior aspect of the knee. The pain improves with rest. Denies any other injuries. Denies numbness, tingling or other constitutional complaints. Denies tobacco use, drug use, alcohol abuse. The patient lives with family and uses a cane at baseline. PAST MEDICAL HISTORY: Benign positional vertigo Right hip fracture Right shoulder fracture Frequent falls Dementia Rheumatic fever as child PAST SURGICAL HISTORY: ORIF right hip fracture ORIF right shoulder fracture Active Problems Problem Status Category Onset Tibial plateau fracture, left Acute Medical Social History Smoking history Never smoked Hx Alcohol Use No Allergies Allergy/AdvReac Type Severity Reaction Status Date / Time No Known Allergies Allergy Verified 01/04/19 11:03 Active Medications Generic Name Dose Route Start Last Admin Trade Name Freq PRN Reason Stop Dose Admin Acetaminophen 650 mg 01/04/19 17:14 Tylenol - PO Q6H PRN PAIN LEVEL 1-5 Bisacodyl 10 mg 01/04/19 17:14 Dulcolax Suppository - RC DAILY PRN CONSTIPATION Docusate Sodium 300 mg 01/04/19 22:00 Colace - PO HS LEELA Dextrose/Sodium Chloride 1,000 mls @ 50 mls/hr 01/05/19 00:01 D5-Ns - IV ASDIR LEELA Non-Formulary Medication 21 mg 01/05/19 10:00 Memantine Hcl [Namenda Xr] PO DAILY [facility] Vital Signs (last) Temp Pulse Resp BP Pulse Ox 98.3 F 60 16 120/69 97 01/04/19 16:36 01/04/19 16:36 01/04/19 16:36 01/04/19 16:36 01/04/19 14:29 Intake and Output 01/02/19 01/03/19 01/04/19 23:59 23:59 23:59 Other: Weight 108 lb Height 5 ft 2 in 5 ft Body Mass Index (BMI) 21.1 Weight Measurement Method Patient Lift Scale Weight Measurement Method Est/Stated by Patient Laboratory 01/04/19 12:10 01/04/19 12:26 FAMILY HISTORY Reviewed and noncontributory REVIEW OF SYMPTOMS A twelve-point review of systems was performed and was negative except as noted in HPI. PHYSICAL EXAM Constitutional: Alert and oriented. Able to follow commands. No acute distress, appropriate mood and affect. Right Upper Extremity: No tenderness to palpation. Passive and active ROM, free from pain. Left Upper Extremity: No tenderness to palpation. Passive and active ROM, free from pain. Right Lower Extremity: No tenderness to palpation. Passive and active ROM, free from pain. No cords or calf tenderness. No significant calf/ankle edema. Full passive and active ROM, free from pain. Joints stable with no pathologic laxity. EHL/TA/GS motor intact; SILT distally; 2+ DP pulses; Cap refill brisk. Left Lower Extremity: Examination of the left knee shows a knee effusion. Skin warm, dry, and intact; no lesions, rashes or ulcers noted. Muscle mass equal and symmetric to contralateral side. No atrophy noted. Tender to palpation at posterior aspect of the knee; nontender throughout rest of extremity. No cords or calf tenderness. No significant calf/ankle edema. Full passive and active ROM , free from pain. Joints stable with no pathologic laxity. EHL/TA/GS motor intact; SILT distally; 2+ DP pulses; Cap refill brisk. IMAGING I personally reviewed all radiographs and CT images of the knee. They demonstrate moderate to sever degenerative changes with joint space narrowing, subchondral sclerosis and osteophyte formation. There is an acute fracture of the left tibial plateau involving the posterolateral aspect. ASSESSMENT AND PLAN Shellie Sung is a 78 year old female presenting status post fall with a left sided tibial plateau fracture. We have reviewed the imaging and clinical findings in detail, as well as their potential implications. After appropriate informed discussion, the patient was placed in a well-padded Bulky Blair dressing and knee immobilizer. - No surgical intervention at this time - Maintain Bulky Blair dressing and knee immobilizer. Will need daily skin checks to monitor for any pressure ulcers. We will convert her to a fracture knee brace in the office. - Non-weight bearing on the left lower extremity - Maintain strict elevation above the level of the heart for the next 3-4 days - Keep the brace clean and dry - Avoid NSAID medications - Pain control - DVT prophylaxis - Appreciate medical management - Elevate head of bed; Encourage oral intake - Decubitus precautions (heel and sacrum) At the patient's request, I discussed the her care with her son Daniel. All questions were answered. Thank you for involving our team in the care of this patient. Please have patient follow up in our office in 1-2 weeks [phone].
[2019-01-04] MEDS: DOCUSATE SODIUM 100 MG CAPSULE (FP) PO SCH (22:13)
[2019-01-04] MEDS: ACETAMINOPHEN 325 MG TABLET (FP) PO PRN (22:13)
[2019-01-04] MEDS: HEPARIN NA (PORCINE) 5,000 UNITS/ML 1ML VIAL SQ SCH (22:14)
[2019-01-05] MEDS ORDERED: DEXTROSE 5%-NORMAL SALINE 1,000 ML IV SCH (00:01)
[2019-01-05] MEDS: HEPARIN NA (PORCINE) 5,000 UNITS/ML 1ML VIAL SQ SCH ×3 (05:54→21:42)
[2019-01-05] MEDS ORDERED: MEMANTINE HCL 5 MG TABLET (UD) PO SCH ×2 (10:00)
--- NOTE | 2019-01-05 11:54 | PN ---
Physical Exam: SUBJECTIVE: Patient seen and examined OBJECTIVE: Vital Signs Period Temp Pulse Resp BP Sys/Vargas Pulse Ox Last 24 Hr 98.3 F-99.0 F 60-78 16-19 107-124/54-73 94-98 GENERAL: Awake, interactive with family, speech clear. Oriented, appropriate conversation today. LUNGS: Breath sounds equal, clear to auscultation HEART: Regular rate and rhythm, normal S1 and S2 ABDOMEN: Soft, nontender, not distended, UPPER EXTREMITIES: 2+ pulses, warm, well-perfused. No cyanosis. No clubbing. No peripheral edema. LOWER EXTREMITIES: 2+ pulses, warm, well-perfused. No calf tenderness. No peripheral edema. LLE: Knee immobilizer in place; good DP pulse, flex/extend toes, 5/5 sensory NEUROLOGICAL: Cranial nerves II-XII intact. Normal speech. Laboratory Results - last 24 hr 01/04/19 01/04/19 01/04/19 12:10 12:10 12:10 WBC 8.4 RBC 4.43 Hgb 13.9 Hct 41.8 MCV 94.3 MCH 31.3 MCHC 33.2 RDW 12.9 Plt Count 329 MPV 7.7 Absolute Neuts (auto) 6.4 Neutrophils % 76.0 Lymphocytes % 18.5 Monocytes % 4.0 Eosinophils % 0.9 Basophils % 0.6 Sodium Potassium Chloride Carbon Dioxide Anion Gap BUN Creatinine Creat Clearance w eGFR Random Glucose Calcium Magnesium 2.1 Total Bilirubin AST ALT Alkaline Phosphatase Troponin I < 0.03 Total Protein Albumin Urine Color Urine Appearance Urine pH Urine Protein Urine Glucose (UA) Urine Ketones Urine Blood Urine Nitrite Urine Bilirubin Urine Urobilinogen Ur Leukocyte Esterase Blood Type Antibody Screen 01/04/19 01/04/19 01/04/19 12:26 15:40 17:30 WBC RBC Hgb Hct MCV MCH MCHC RDW Plt Count MPV Absolute Neuts (auto) Neutrophils % Lymphocytes % Monocytes % Eosinophils % Basophils % Sodium 137 Potassium 3.8 Chloride 103 Carbon Dioxide 25 Anion Gap 9 BUN 12 Creatinine 0.7 Creat Clearance w eGFR 80.93 Random Glucose 99 Calcium 8.8 Magnesium Total Bilirubin 1.2 H AST 22 ALT 13 Alkaline Phosphatase 123 H Troponin I Total Protein 7.3 Albumin 3.9 Urine Color Yellow Urine Appearance Clear Urine pH 5.5 Urine Protein Negative Urine Glucose (UA) Negative Urine Ketones Negative Urine Blood Negative Urine Nitrite Negative Urine Bilirubin Negative Urine Urobilinogen 0.2 Ur Leukocyte Esterase Negative Blood Type O POSITIVE Antibody Screen Negative 01/04/19 17:42 WBC RBC Hgb Hct MCV MCH MCHC RDW Plt Count MPV Absolute Neuts (auto) Neutrophils % Lymphocytes % Monocytes % Eosinophils % Basophils % Sodium Potassium Chloride Carbon Dioxide Anion Gap BUN Creatinine Creat Clearance w eGFR Random Glucose Calcium Magnesium Total Bilirubin AST ALT Alkaline Phosphatase Troponin I Total Protein Albumin Urine Color Urine Appearance Urine pH Urine Protein Urine Glucose (UA) Urine Ketones Urine Blood Urine Nitrite Urine Bilirubin Urine Urobilinogen Ur Leukocyte Esterase Blood Type O POSITIVE Antibody Screen Active Medications Generic Name Dose Route Start Last Admin Trade Name Freq PRN Reason Stop Dose Admin Acetaminophen 650 mg 01/04/19 17:14 01/04/19 22:13 Tylenol - PO 650 mg Q6H PRN Administration PAIN LEVEL 1-5 Bisacodyl 10 mg 01/04/19 17:14 Dulcolax Suppository - RC DAILY PRN CONSTIPATION Docusate Sodium 300 mg 01/04/19 22:00 01/04/19 22:13 Colace - PO 300 mg HS LEELA Administration Heparin Sodium (Porcine) 5,000 unit 01/04/19 22:00 01/05/19 05:54 Heparin - SQ 5,000 unit TID LEELA Administration Non-Formulary Medication 21 mg 01/05/19 10:00 Memantine Hcl [Namenda Xr] PO DAILY LEELA ASSESSMENT/PLAN 78 year-old female with a PMH significant for benign positional vertigo, frequent falls, and dementia. Placed on observation for a left posteriolateral tibial plateau fracture, acute v. chronic, and large joint effusion. Left posteriolateral tibial plateau fracture, acute v. chronic Large joint effusion --seen and evaluated by ortho: no surgical intervention; maintain Bulky Blair dressing and knee immobilizer; non-weight bearing; strict elevation 3-4 days; no NSAIDS --daily skin checks, decubitus precautions heels and sacrum --f/u with ortho 1-2 weeks Benign positional vertigo --stable Dementia --continue Namenda Urinary frequency --UA negative; no antibiotics for now FEN Fluids: PO intake adequate Electrolytes: replete as indicated Nutrition: regular diet DVT prophylaxis: subq heparin Physical therapy Dispo: continues to require in patient care. Full code. Visit type - Emergency Visit Emergency Visit: Yes ED Registration Date: 01/05/19 Care time: The patient presented to the Emergency Department on the above date and was hospitalized for further evaluation of their emergent condition. - New Patient This patient is new to me today: No - Critical Care Critical Care patient: No
[2019-01-05] MEDS ORDERED: PT OWN MED DRAWER 7, Y5N ONE (18:28)
[2019-01-05] MEDS: DOCUSATE SODIUM 100 MG CAPSULE (FP) PO SCH (21:42)
[2019-01-06] MEDS: HEPARIN NA (PORCINE) 5,000 UNITS/ML 1ML VIAL SQ SCH ×3 (06:26→21:34)
--- NOTE | 2019-01-06 08:30 | PN ---
Physical Exam: SUBJECTIVE: Patient seen and examined oob to chair. Denies pain. OBJECTIVE: Vital Signs Period Temp Pulse Resp BP Sys/Vargas Pulse Ox Last 24 Hr 98.7 F-99.1 F 78-108 16-19 107-149/58-83 95-97 GENERAL: Awake, interactive with family, speech clear. Oriented, appropriate conversation today. LUNGS: Breath sounds equal, clear to auscultation HEART: Regular rate and rhythm, normal S1 and S2 ABDOMEN: Soft, nontender, not distended, UPPER EXTREMITIES: 2+ pulses, warm, well-perfused. No cyanosis. No clubbing. No peripheral edema. LOWER EXTREMITIES: 2+ pulses, warm, well-perfused. No calf tenderness. No peripheral edema. LLE: Knee immobilizer in place; good DP pulse, flex/extend toes, 5/5 sensory; immobilizer removed, bulky dressing c/d/i NEUROLOGICAL: Cranial nerves II-XII intact. Normal speech. Laboratory Results - last 24 hr 01/06/19 02:31 POC Glucometer 124 Active Medications Generic Name Dose Route Start Last Admin Trade Name Yogeshq PRN Reason Stop Dose Admin Acetaminophen 650 mg 01/04/19 17:14 01/04/19 22:13 Tylenol - PO 650 mg Q6H PRN Administration PAIN LEVEL 1-5 Bisacodyl 10 mg 01/04/19 17:14 Dulcolax Suppository - RC DAILY PRN CONSTIPATION Docusate Sodium 300 mg 01/04/19 22:00 01/05/19 21:42 Colace - PO 300 mg HS LEELA Administration Heparin Sodium (Porcine) 5,000 unit 01/04/19 22:00 01/06/19 06:26 Heparin - SQ 5,000 unit TID LEELA Administration Non-Formulary Medication 21 mg 01/05/19 10:00 Memantine Hcl [Namenda Xr] PO DAILY CRITICAL ACCESS HOSPITAL ASSESSMENT/PLAN 78 year-old female with a PMH significant for benign positional vertigo, frequent falls, and dementia. Placed on observation for a left posteriolateral tibial plateau fracture, acute v. chronic, and large joint effusion. Left posteriolateral tibial plateau fracture, acute v. chronic Large joint effusion --seen and evaluated by ortho: no surgical intervention; maintain Bulky Blair dressing and knee immobilizer; non-weight bearing; strict elevation 3-4 days; no NSAIDS --daily skin checks, decubitus precautions heels and sacrum --f/u with ortho 1-2 weeks Benign positional vertigo --stable Dementia --continue Namenda Urinary frequency --UA negative; no antibiotics for now FEN Fluids: PO intake adequate Electrolytes: replete as indicated Nutrition: regular diet DVT prophylaxis: subq heparin Physical therapy Dispo: continues to require in patient care. Full code. Visit type - Emergency Visit Emergency Visit: Yes ED Registration Date: 01/05/19 Care time: The patient presented to the Emergency Department on the above date and was hospitalized for further evaluation of their emergent condition. - New Patient This patient is new to me today: No - Critical Care Critical Care patient: No
[2019-01-06] MEDS ORDERED: PT OWN MED DRAWER 7, Y5N ONE (08:57)
[2019-01-06] MEDS: PATIENT'S OWN MEDICATION (NON-FORMULARY) (Memantine Hcl [Namenda Xr] 0 MG) PO SCH (09:33)
[2019-01-06] MEDS: DOCUSATE SODIUM 100 MG CAPSULE (FP) PO SCH (21:34)
[2019-01-06] MEDS: ACETAMINOPHEN 325 MG TABLET (FP) PO PRN (22:41)
[2019-01-07] MEDS: HEPARIN NA (PORCINE) 5,000 UNITS/ML 1ML VIAL SQ SCH ×2 (06:23→21:36)
[2019-01-07] MEDS ORDERED: PT OWN MED DRAWER 7, Y5N ONE (09:12)
[2019-01-07] MEDS: PATIENT'S OWN MEDICATION (NON-FORMULARY) (Memantine Hcl [Namenda Xr] 0 MG) PO SCH ×2 (09:35→09:36)
--- NOTE | 2019-01-07 11:34 | PN ---
Physical Exam: SUBJECTIVE: Patient seen and examined oob to chair. Son present. Pain in knee has resolved. Knee immoblizer in place. OBJECTIVE: Vital Signs Period Temp Pulse Resp BP Sys/Vargas Pulse Ox Last 24 Hr 98.4 F-98.7 F 74-106 16-18 124-130/68-81 92-97 GENERAL: Awake, interactive with family, speech clear. Oriented, appropriate conversation today. LUNGS: Breath sounds equal, clear to auscultation HEART: Regular rate and rhythm, normal S1 and S2 ABDOMEN: Soft, nontender, not distended, UPPER EXTREMITIES: 2+ pulses, warm, well-perfused. No cyanosis. No clubbing. No peripheral edema. LOWER EXTREMITIES: 2+ pulses, warm, well-perfused. No calf tenderness. No peripheral edema. LLE: Knee immobilizer in place; good DP pulse, flex/extend toes, 5/5 sensory; immobilizer removed, bulky dressing c/d/i NEUROLOGICAL: Cranial nerves II-XII intact. Normal speech. Active Medications Generic Name Dose Route Start Last Admin Trade Name Yogeshq PRN Reason Stop Dose Admin Acetaminophen 650 mg 01/04/19 17:14 01/06/19 22:41 Tylenol - PO 650 mg Q6H PRN Administration PAIN LEVEL 1-5 Bisacodyl 10 mg 01/04/19 17:14 Dulcolax Suppository - RC DAILY PRN CONSTIPATION Docusate Sodium 300 mg 01/04/19 22:00 01/06/19 21:34 Colace - PO 300 mg HS LEELA Administration Heparin Sodium (Porcine) 5,000 unit 01/04/19 22:00 01/07/19 06:23 Heparin - SQ 5,000 unit TID LEELA Administration Non-Formulary Medication 0 mg 01/05/19 10:00 01/07/19 09:36 Memantine Hcl [Namenda Xr] PO 21 mg DAILY LEELA Administration ASSESSMENT/PLAN: 78 year-old female with a PMH significant for benign positional vertigo, frequent falls, and dementia. Placed on observation for a left posteriolateral tibial plateau fracture, acute v. chronic, and large joint effusion. Left posteriolateral tibial plateau fracture, acute v. chronic Large joint effusion --seen and evaluated by ortho: no surgical intervention; maintain Bulky Blair dressing and knee immobilizer; non-weight bearing; strict elevation 3-4 days; no NSAIDS --daily skin checks, decubitus precautions heels and sacrum --f/u with ortho 1-2 weeks Benign positional vertigo --stable Dementia --continue Namenda Urinary frequency --UA negative; no antibiotics for now FEN Fluids: PO intake adequate Electrolytes: replete as indicated Nutrition: regular diet DVT prophylaxis: subq heparin Physical therapy Dispo: continues to require in patient care[facility] Full code. Visit type - Emergency Visit Emergency Visit: Yes ED Registration Date: 01/05/19 Care time: The patient presented to the Emergency Department on the above date and was hospitalized for further evaluation of their emergent condition. - New Patient This patient is new to me today: No - Critical Care Critical Care patient: No
[2019-01-07] MEDS: ACETAMINOPHEN 325 MG TABLET (FP) PO PRN (20:47)
[2019-01-07] MEDS: DOCUSATE SODIUM 100 MG CAPSULE (FP) PO SCH (21:37)
[2019-01-08] MEDS: ACETAMINOPHEN 325 MG TABLET (FP) PO PRN (06:12)
[2019-01-08] MEDS: HEPARIN NA (PORCINE) 5,000 UNITS/ML 1ML VIAL SQ SCH (06:12)
--- NOTE | 2019-01-08 09:11 | DS ---
Physical Exam: SUBJECTIVE: Patient seen and examined oob to chair. Seen earlier ambulating in room with walker. Denies any pain in knee. In very good spirits. OBJECTIVE: Vital Signs Period Temp Pulse Resp BP Sys/Vargas Pulse Ox Last 24 Hr 98.2 F-98.6 F 70-89 17-18 105-123/61-73 94-94 PHYSICAL EXAM GENERAL: Awake, interactive with family, speech clear. Oriented, appropriate conversation today. LUNGS: Breath sounds equal, clear to auscultation HEART: Regular rate and rhythm, normal S1 and S2 ABDOMEN: Soft, nontender, not distended, UPPER EXTREMITIES: 2+ pulses, warm, well-perfused. No cyanosis. No clubbing. No peripheral edema. LOWER EXTREMITIES: 2+ pulses, warm, well-perfused. No calf tenderness. No peripheral edema. LLE: Knee immobilizer in place; good DP pulse, flex/extend toes, 5/5 sensory NEUROLOGICAL: Cranial nerves II-XII intact. Normal speech. CBCD WBC 8.4 K/mm3 (4.0-10.8) 01/04/19 12:10 RBC 4.43 M/mm3 (3.60-5.2) 01/04/19 12:10 Hgb 13.9 GM/dl (10.7-15.3) 01/04/19 12:10 Hct 41.8 % (32.4-45.2) 01/04/19 12:10 MCV 94.3 fl (80-96) 01/04/19 12:10 MCHC 33.2 g/dl (32.0-36.0) 01/04/19 12:10 RDW 12.9 % (11.6-15.6) 01/04/19 12:10 Plt Count 329 K/MM3 (134-434) 01/04/19 12:10 MPV 7.7 fl (7.5-11.1) 01/04/19 12:10 CMP Sodium 137 mmol/L (136-145) 01/04/19 12:26 Potassium 3.8 mmol/L (3.5-5.1) 01/04/19 12:26 Chloride 103 mmol/L (98-107) 01/04/19 12:26 Carbon Dioxide 25 mmol/L (21-32) 01/04/19 12:26 Anion Gap 9 MMOL/L (8-16) 01/04/19 12:26 BUN 12 mg/dl (7-18) 01/04/19 12:26 Creatinine 0.7 mg/dl (0.55-1.3) 01/04/19 12:26 Creat Clearance w eGFR 80.93 (>60) 01/04/19 12:26 Calcium 8.8 mg/dl (8.5-10) 01/04/19 12:26 Total Bilirubin 1.2 mg/dl (0.2-1) H 01/04/19 12:26 AST 22 U/L (15-37) 01/04/19 12:26 ALT 13 U/L (13-61) 01/04/19 12:26 Alkaline Phosphatase 123 U/L (45-117) H 01/04/19 12:26 Total Protein 7.3 g/dl (6.4-8.2) 01/04/19 12:26 Albumin 3.9 g/dl (3.4-5.0) 01/04/19 12:26 HOSPITAL COURSE: Date of Admission:01/05/19 Date of Discharge: 01/08/19 Pre hospital course 78 year-old female with a PMH significant for benign positional vertigo, frequent falls, and dementia. First presented to the ED on 01/02 for left knee pain and swelling following a mechanical fall. Xray was unrevealing for an acute process and the patient was treated and released. Over the past two days, the swelling become worse and patient could no longer weight bear. She was brought back to ED by son. On ROS, patient reports urinary frequency x 1 week, no dysuria or hematuria. Denies fever, sweats, chills. ER course (1) CT LLE: fracture of the posteriolateral tibial plateau of uncertain chronicity, may be acute; large joint effusion (2) UA negative Subsequent hospital course 78 year-old female with a PMH significant for benign positional vertigo, frequent falls, and dementia. Placed on observation for a left posteriolateral tibial plateau fracture, acute v. chronic, and large joint effusion. Left posteriolateral tibial plateau fracture Large joint effusion --seen and evaluated by ortho: no surgical intervention; maintain Bulky Blair dressing and knee immobilizer; non-weight bearing; strict elevation 3-4 days; no NSAIDS --daily skin checks, decubitus precautions heels and sacrum --f/u with ortho 1-2 weeks Benign positional vertigo --stable Dementia --continued Namenda Minutes to complete discharge: 35 Discharge Summary Reason For Visit: FRACTURE LEFT TIBIAL PLATEAU Current Active Problems Tibial plateau fracture, left (Acute) Condition: Stable - Instructions Disposition: RETIREMENT FACILITY - Home Medications Comprehensive Discharge Medication List: Ambulatory Orders Aspirin [ASA -] 81 mg PO DAILY 09/02/16 Meclizine HCl 12.5 mg PO ASDIR 11/22/18 Memantine HCl [Namenda Xr] 21 mg PO DAILY 01/04/19 This patient is new to me today: No Emergency Visit: Yes ED Registration Date: 01/05/19 Care time: The patient presented to the Emergency Department on the above date and was hospitalized for further evaluation of their emergent condition. Critical Care patient: No - Discharge Referral Referred to [facility] No
[2019-01-08] MEDS ORDERED: PT OWN MED DRAWER 7, Y5N ONE (09:35)
[2019-01-08] MEDS: PATIENT'S OWN MEDICATION (NON-FORMULARY) (Memantine Hcl [Namenda Xr] 0 MG) PO SCH (10:12)
[2019-01-08 11:21] VITALS: BP 120/79; PULSE 78; TEMP 98
== END 2019-01-08 11:00 | DRG 563 ==
LOC: FER 10:56 → FM/S 14:36 → OBSVTOIN 01-05 11:21
PROVIDERS: ATTEND Nurse Practitioner Acute Care
DX: S82.142A Displaced bicondylar fracture of left tibia, initial encounter for closed fracture (principal); F03.90 Unspecified dementia, unspecified severity, without behavioral disturbance, psychotic disturbance, mood disturbance, and anxiety; H81.10 Benign paroxysmal vertigo, unspecified ear; R35.0 Frequency of micturition; M25.462 Effusion, left knee; R29.6 Repeated falls; W19.XXXA Unspecified fall, initial encounter; Y93.89 Activity, other specified; Y92.89 Other specified places as the place of occurrence of the external cause; Y99.8 Other external cause status
CPT/HCPCS: 36415; 71045-TC-FY; 73562-TC-LT-FY; 73700-TC-RT; 80053; 81003; 82962; 83735; 84484; 85025; 86850; 86900; 86901; 87086; 93005; 97116-GP; 97162-GP; 99281-25; 99282-25; G0378; J1644

== ENCOUNTER 2021-07-03 13:50 | Inpatient (IN) | payer OTHER ==
[2021-07-03] MEDS ORDERED: ACETAMINOPHEN 500 MG TABLET (FP) PO ONE (14:50)
[2021-07-03] MEDS ORDERED: morphine SULFATE 4 MG/ML VIAL IVPUSH ONE (15:16)
[2021-07-03] MEDS ORDERED: morphine SULFATE 4 MG/ML VIAL ONE (15:41)
[2021-07-03 16:15] LABS: BASO % 0.3 % (0-2.0); EOS % 0.8 % (0-4.5); HEMATOCRIT 38.3 % (32.4-45.2); LYMPH % 20.6 % (8-40); MCH 31.3 pg (25.7-33.7); MCHC 33.9 g/dl (32.0-36.0); MEAN CELL VOLUME 92.3 fl (80-96); MEAN PLT VOLUME 8.1 fl (7.5-11.1); MONO % 6.8 % (3.8-10.2); NEUT % 71.5 % (42.8-82.8); PLATELET COUNT 283 10^3/uL (134-434); RBC 4.15 M/mm3 (3.60-5.2); RDW 13.3 % (11.6-15.6); WHITE BLOOD COUNT 9.3 K/mm3 (4.0-10.0)
[2021-07-03 16:20] LABS: EPI CELLS 2 /uL (0-25.1); HYALINE CASTS 2 /uL (0-3.1); PH,URINE 5.5 (5.0-8.0); URINE APPEARANCE CLEAR; URINE BACTERIA >9,000 /uL (0-1359); URINE BILIRUBIN NEGATIVE (NEGATIVE); URINE COLOR YELLOW; URINE GLUCOSE (UA) NEGATIVE (NEGATIVE); URINE KETONE NEGATIVE (NEGATIVE); URINE LEUK ESTERASE 2+ (NEGATIVE); URINE NITRITE POSITIVE (NEGATIVE); URINE PROTEIN NEGATIVE (NEGATIVE); URINE RBC 4 /uL (0-23.9); URINE UROBILINOGEN 0.2 mg/dL (0.2-1.0); URINE WBC 189 /uL (0-25.8)
[2021-07-03 16:22] LABS: INR 0.98 (0.83-1.09); PROTHROMBIN TIME (PATIENT) 11.5 SEC (9.7-13.0)
[2021-07-03 16:25] LABS: ACTIVATED PTT 25.4 SECONDS (25.2-36.5)
[2021-07-03 16:30] LABS: CHLORIDE 109 mmol/L (98-107); SODIUM 143 mmol/L (136-145)
[2021-07-03 16:32] LABS: CALCIUM 8.9 mg/dL (8.5-10.1)
[2021-07-03 16:33] LABS: ALBUMIN 3.1 g/dl (3.4-5.0); ANION GAP 10 MMOL/L (8-16); BLOOD UREA NITROGEN 20.7 mg/dL (7-18); CO2 24 mmol/L (21-32); GLUCOSE,RANDOM 115 mg/dL (74-106)
[2021-07-03 16:36] LABS: CREATININE 0.8 mg/dL (0.55-1.3); SGOT/AST 28 U/L (15-37); SGPT/ALT 41 U/L (13-61)
[2021-07-03 16:37] LABS: BILIRUBIN,TOTAL 0.9 mg/dL (0.2-1)
[2021-07-03 16:38] LABS: TOT PROT 7.3 g/dl (6.4-8.2)
[2021-07-03] MEDS ORDERED: CEFTRIAXONE 1 GM in DEXTROSE 5%-WATER - 100 ML IVPB ONE (16:38)
[2021-07-03 16:39] LABS: ALK PHOS 158 U/L (45-117)
[2021-07-03] MEDS ORDERED: CEFTRIAXONE 1 GM/50 ML BAG ONE (17:25)
[2021-07-03] MEDS ORDERED: MEMANTINE HCL 10 MG TABLET (FP) PO ONE (19:47)
[2021-07-03] MEDS ORDERED: ATORVASTATIN CA 20 MG TABLET (FP) PO ONE (19:47)
[2021-07-03] MEDS ORDERED: morphine SULFATE 4 MG/ML VIAL IVPUSH PRN (19:48)
[2021-07-03] MEDS ORDERED: ACETAMINOPHEN 325 MG TABLET (FP) PO PRN (19:59)
[2021-07-03] MEDS ORDERED: ATORVASTATIN CA 20 MG TABLET (FP) ONE (23:08)
[2021-07-03] MEDS ORDERED: HEPARIN NA (PORCINE) 5,000 UNITS/ML 1ML VIAL ONE (23:08)
[2021-07-03] MEDS: HEPARIN NA (PORCINE) 5,000 UNITS/ML 1ML VIAL SQ SCH (23:16)
[2021-07-03] MEDS: LACTATED RINGERS SOLUTION 1,000 ML/1,000 ML INFUS.BAG IV SCH (23:16)
[2021-07-04 02:23] VITALS: BMI 25.5
[2021-07-04] MEDS: morphine SULFATE 4 MG/ML VIAL IVPUSH PRN ×2 (06:22→14:19)
[2021-07-04] MEDS: HEPARIN NA (PORCINE) 5,000 UNITS/ML 1ML VIAL SQ SCH ×3 (06:22→23:01)
[2021-07-04] MEDS ORDERED: DEXTROSE 5%-WATER - 50 ML IVPB ONE (09:15)
[2021-07-04] MEDS ORDERED: cefTRIAXone SODIUM 1 GM VIAL ONE (09:15)
[2021-07-04] MEDS: CEFTRIAXONE 1 GM in DEXTROSE 5%-WATER - 50 ML IVPB SCH (09:29)
[2021-07-04] MEDS: LACTATED RINGERS SOLUTION 1,000 ML/1,000 ML INFUS.BAG IV SCH (23:03)
[2021-07-05] MEDS: HEPARIN NA (PORCINE) 5,000 UNITS/ML 1ML VIAL SQ SCH ×3 (05:50→21:14)
[2021-07-05] MEDS: LACTATED RINGERS SOLUTION 1,000 ML/1,000 ML INFUS.BAG IV SCH ×2 (05:51→20:27)
[2021-07-05] MEDS ORDERED: cefTRIAXone SODIUM 1 GM VIAL ONE (10:19)
[2021-07-05] MEDS ORDERED: DEXTROSE 5%-WATER - 50 ML IVPB ONE (10:20)
[2021-07-05] MEDS: morphine SULFATE 4 MG/ML VIAL IVPUSH PRN (10:22)
[2021-07-05] MEDS: CEFTRIAXONE 1 GM in DEXTROSE 5%-WATER - 50 ML IVPB SCH (10:23)
[2021-07-05 23:10] VITALS: BP 121/58; PULSE 99; TEMP 99.2
== END 2021-07-05 22:35 | disposition short-term general hospital (02) | DRG 534 ==
LOC: JER 13:50 → JERBED 16:00 → J6S 07-04 01:01
PROVIDERS: ATTEND Family Medicine
DX: S72.302A Unspecified fracture of shaft of left femur, initial encounter for closed fracture (principal); M97.02XA Periprosthetic fracture around internal prosthetic left hip joint, initial encounter; N39.0 Urinary tract infection, site not specified; F03.90 Unspecified dementia, unspecified severity, without behavioral disturbance, psychotic disturbance, mood disturbance, and anxiety; I25.10 Atherosclerotic heart disease of native coronary artery without angina pectoris; R29.6 Repeated falls; J30.9 Allergic rhinitis, unspecified; B96.20 Unspecified Escherichia coli [E. coli] as the cause of diseases classified elsewhere; W18.39XA Other fall on same level, initial encounter; Y92.89 Other specified places as the place of occurrence of the external cause; Y99.8 Other external cause status; Z96.642 Presence of left artificial hip joint
CPT/HCPCS: 36415; 70450-TC; 71045-TC-FY; 72125-TC; 73523-TC-FY; 73552-TC-LT-FY; 73562-TC-LT-FY; 80053; 81003; 82550; 84484; 85025; 85610; 85730; 86850; 86900; 86901; 87086; 87186; 93005; 93010; 99285-25; C9803; J1644; U0003; U0005